=== PATIENT | female | born 1965 | race Caucasian/White ===

== ENCOUNTER 2023-12-25 13:19 | Emergency (ER) | payer MEDICARE, BC ==
[~2023-12-25] VITALS: Ht 162.6 cm; Wt 70.5 kg
[2023-12-25 13:22] VITALS: BP 139/60; PULSE 89; RESP 16; TEMP 98; O2SAT 98
[2023-12-25] MEDS ORDERED: CLON-850 PO (14:10)
[2023-12-25] MEDS ORDERED: BACL10TA2 PO (14:27)
[2023-12-25] MEDS: SUMAtriptan succ. 6 MG/0.5ml vial SQ ONE (14:39)
== END 2023-12-25 14:46 | disposition home or self-care (01) ==
LOC: ER 13:20
DX: F41.9 Anxiety disorder, unspecified (principal); Z76.0 Encounter for issue of repeat prescription; Z88.1 Allergy status to other antibiotic agents; Z88.8 Allergy status to other drugs, medicaments and biological substances; Z79.899 Other long term (current) drug therapy
CPT/HCPCS: 96372; 99283; J3030